=== PATIENT | male | born 1980 | race Caucasian/White ===

== ENCOUNTER 2020-08-16 22:48 | Emergency (ER) | payer OTHER ==
[2020-08-16 22:57] VITALS: BP 139/82; PULSE 85; RESP 18; TEMP 98.2
--- NOTE | 2020-08-17 00:03 | US ---
EXAMINATION TYPE: US venous doppler duplex LE LT DATE OF EXAM: 08/16/2020 11:06 PM COMPARISON: NONE CLINICAL HISTORY: redness and swelling left calf. SIDE PERFORMED: left TECHNIQUE: The lower extremity deep venous system is examined utilizing real time linear array sonog darling with graded compression, doppler sonography and color-flow sonography. VESSELS IMAGED: Common Femoral Vein Deep Femoral Vein Greater Saphenous Vein * Femoral Vein Popliteal Vein Small Saphenous Vein * Proximal Calf Veins (* superficial vessels) Left Leg: Negative for DVT Positive for SVT at the patient's area of redness, left calf. IMPRESSION: There is limited superficial vein thrombosis in the calf. No evidence of deep vein thromb osis in the left leg.
--- NOTE | 2020-08-17 00:11 | ED ---
Extremity Problem HPI - General Chief complaint: Extremity Problem,Nontraumatic Stated complaint: left lower leg extremity Time Seen by Provider: 08/16/20 22:59 Source: patient, RN notes reviewed, old records reviewed Mode of arrival: ambulatory Limitations: no limitations - History of Present Illness Initial comments: Patient is a 40-year-old male presents emergency department today with chief complaint of left leg redness pain and swelling for the past 3 days. Patient's concerned that he may have a DVT. Patient has had a history of blood clots on the right leg in the past. Patient reports that he is on current anticoagulation. He denies any chest pain or shortness of breath. - Related Data Previous Rx's Medication Instructions Recorded Ibuprofen [Motrin] 600 mg PO Q8HR PRN #20 tab 08/17/20 Allergies Allergy/AdvReac Type Severity Reaction Status Date / Time No Known Allergies Allergy Verified 08/16/20 22:57 Review of Systems ROS Statement: Those systems with pertinent positive or pertinent negative responses have been documented in the HPI. ROS Other: All systems not noted in ROS Statement are negative. Past Medical History Additional Past Medical History / Comment(s): DVT History of Any Multi-Drug Resistant Organisms: None Reported Additional Past Surgical History / Comment(s): acl reconstruction left leg. orthopedic surgery on knee. Past Psychological History: PTSD Smoking Status: Never smoker Past Alcohol Use History: Occasional Past Drug Use History: None Reported General Exam - General Exam Comments Initial Comments: Pleasant 40-year-old male. No distress. Limitations: no limitations General appearance: alert, in no apparent distress Head exam: Present: atraumatic, normocephalic, normal inspection Eye exam: Present: normal appearance, PERRL, EOMI. Absent: scleral icterus, conjunctival injection, periorbital swelling ENT exam: Present: normal exam, mucous membranes moist Neck exam: Present: normal inspection. Absent: tenderness, meningismus, lymp hadenopathy Respiratory exam: Present: normal lung sounds bilaterally. Absent: respiratory distress, wheezes, rales, rhonchi, stridor Cardiovascular Exam: Present: regular rate GI/Abdominal exam: Present: soft, normal bowel sounds. Absent: distended, tenderness, guarding, rebound, rigid Extremities exam: Present: normal inspection, full ROM, normal capillary refill, other (Patient has a redness and palpable cord over the lateral aspect of the left calf.). Absent: tenderness, pedal edema, joint swelling, calf tenderness Back exam: Present: normal inspection Neurological exam: Present: alert, oriented X3, CN II-XII intact Psychiatric exam: Present: normal affect Course Vital Signs 08/16/20 22:53 Temperature 98.2 F Pulse Rate 85 Respiratory 18 Rate Blood Pressure 139/82 O2 Sat by Pulse 96 Oximetry Medical Decision Making - Medical Decision Making 40-year-old male presents with nontraumatic left leg swelling he's had history of blood clots in the right leg in the past. Patient has evidence of superficial venous vein thrombosis on the left leg no evidence of DVT. No chest pain shortness of breath. Discussed warm compresses and Motrin Tylenol for pain. Discussed PCP follow up and to return for worsening symptoms. - Radiology Data Radiology results: report reviewed Limited superficial vein thrombosis in the calf. No evidence of DVT in the left leg. Disposition Clinical Impression: Superficial vein thrombosis Disposition: HOME SELF-CARE Condition: Good Instructions (If sedation given, give patient instructions): Superficial Thrombophlebitis (ED) Additional Instructions: Patient advised to take Motrin for pain and apply warm compresses over the area. She can follow-up with her primary care doctor or return to emergency department if any alarming signs or symptoms occur. Prescriptions: Ibuprofen [Motrin] 600 mg PO Q8HR PRN #20 tab PRN Reason: Pain Is patient prescribed a controlled substance at d/c from ED?: No Referrals: [facility],Clinic [Primary Care Provider] - 1-2 days
== END 2020-08-17 00:23 | disposition home or self-care (01) ==
LOC: EC 22:48
DX: I82.812 Embolism and thrombosis of superficial veins of left lower extremity (principal); Z86.718 Personal history of other venous thrombosis and embolism
CPT/HCPCS: 99284

== ENCOUNTER 2021-05-18 21:56 | Emergency (ER) | payer OTHER ==
[2021-05-18 22:00] VITALS: BP 127/81; PULSE 72; RESP 19; TEMP 98
--- NOTE | 2021-05-18 22:33 | US ---
EXAMINATION TYPE: US venous doppler duplex LE RT DATE OF EXAM: 05/18/2021 10:25 PM COMPARISON: Prev Left leg only CLINICAL HISTORY: pain, hx of DVT. Right calf pain, h/o SVT SIDE PERFORMED: Right TECHNIQUE: The lower extremity deep venous system is examined utilizing real time linear array sonog darling with graded compression, doppler sonography and color-flow sonography. VESSELS IMAGED: Common Femoral Vein Deep Femoral Vein Greater Saphenous Vein * Femoral Vein Popliteal Vein Small Saphenous Vein * Proximal Calf Veins (* superficial vessels) Right Leg: Negative for DVT, superficial thrombophlebitis right posterior calf in area of pt's pain IMPRESSION: No evidence of deep vein thrombosis in the right leg. There is some superficial vein thro mbosis in the calf.
--- NOTE | 2021-05-18 23:15 | ED ---
Extremity Problem HPI - General Chief complaint: Extremity Problem,Nontraumatic Stated complaint: Possible R Leg Blood Clot Time Seen by Provider: 05/18/21 22:40 Source: patient, RN notes reviewed Mode of arrival: ambulatory - History of Present Illness Initial comments: Patient is a 40-year-old male that presents to emergency department with a right calf pain. He notes he does have a history of clots. He notes that it is superficial and tender to touch. He denied any other issues or complaints at this time. He was otherwise a well-appearing 40-year-old male in apparent distress or pain. He denied any chest pain first breath headache nausea vomiting diarrhea constipation fever fatigue chills. - Related Data Previous Rx's Medication Instructions Recorded Ibuprofen [Motrin] 600 mg PO Q8HR PRN #20 tab 08/17/20 Allergies Allergy/AdvReac Type Severity Reaction Status Date / Time No Known Allergies Allergy Verified 05/18/21 22:00 Review of Systems ROS Statement: Those systems with pertinent positive or pertinent negative responses have been documented in the HPI. ROS Other: All systems not noted in ROS Statement are negative. Past Medical History Additional Past Medical History / Comment(s): DVT History of Any Multi-Drug Resistant Organisms: None Reported Additional Past Surgical History / Comment(s): acl reconstruction left leg. orthopedic surgery on knee. Past Psychological History: PTSD Smoking Status: Never smoker Past Alcohol Use History: Occasional Past Drug Use History: None Reported General Exam General appearance: alert, in no apparent distress Head exam: Present: atraumatic, normocephalic, normal inspection Eye exam: Present: normal appearance, PERRL, EOMI. Absent: scleral icterus, conjunctival injection, periorbital swelling Neck exam: Present: normal inspection Respiratory exam: Present: normal lung sounds bilaterally. Absent: respiratory distress, wheezes, rales, rhonchi, stridor Cardiovascular Exam: Present: regular rate, normal rhythm, normal heart sounds. Absent: systolic murmur, diastolic murmur, rubs, gallop, clicks GI/Abdominal exam: Present: soft, normal bowel sounds. Absent: distended, tenderness, guarding, rebound, rigid Extremities exam: Present: normal inspection, full ROM, normal capillary refill, other (Right calf tenderness, minimal discoloration. Non-hot to the touch.). Absent: tenderness, pedal edema, joint swelling, calf tenderness Neurological exam: Present: alert, oriented X3 Psychiatric exam: Present: normal affect, normal mood Skin exam: Present: warm, dry, intact, normal color. Absent: rash Course Vital Signs 05/18/21 21:57 Temperature 98 F Pulse Rate 72 Respiratory 19 Rate Blood Pressure 127/81 O2 Sat by Pulse 98 Oximetry Medical Decision Making - Medical Decision Making 89-year-old male complaining of right calf pain. Ultrasound right Ordered. Ultrasound negative for DVT but does show superficial thrombophlebitis. Patient states that he was to go home and was informed that he can do conservative management with [id number] Tylenol inflammatory such as Motrin. Case discussed with Dr. Green, patient can discharge home. - Radiology Data Radiology results: report reviewed, image reviewed Ultrasound of the right lower extremity: Negative for DVT, superficial thrombophlebitis right posterior calf an area patient's pain. Disposition Clinical Impression: Thrombophlebitis of leg, right Disposition: HOME SELF-CARE Condition: Stable Instructions (If sedation given, give patient instructions): Superficial Thrombophlebitis (ED) Additional Instructions: Please return to the Emergency Department if symptoms worsen or any other concerns. Follow-up with primary care 1-2 days. Take Motrin [id number] for the next week to help with inflammation and pain. Is patient prescribed a controlled substance at d/c from ED?: No Referrals: [facility],Clinic [Primary Care Provider] - 1-2 days Time of Disposition: 23:15
== END 2021-05-18 23:21 | disposition home or self-care (01) ==
LOC: EC 21:56
DX: I80.01 Phlebitis and thrombophlebitis of superficial vessels of right lower extremity (principal)
CPT/HCPCS: 99283

== ENCOUNTER 2021-10-05 09:08 | Emergency (ER) | payer OTHER ==
[2021-10-05 09:25] VITALS: BP 135/91; PULSE 84; RESP 18; TEMP 97.7
--- NOTE | 2021-10-05 09:47 | ED ---
General Adult HPI - General Chief complaint: Extremity Injury, Upper Stated complaint: Finger Injury Time Seen by Provider: 10/05/21 09:30 Source: patient, RN notes reviewed Mode of arrival: ambulatory Limitations: no limitations - History of Present Illness Initial comments: 41-year-old male presents to the emergency department for left that he fell down a couple stairs on the left hand and jammed his finger. Patient thinks his finger may be dislocated. States he cannot seem to get his ring off. Patient did not sustain any other injuries or hitting his head. Does not take blood thinners.Patient has no other complaints at this time including shortness of breath, chest pain, abdominal pain, nausea or vomiting, headache, or visual changes. - Related Data Previous Rx's Medication Instructions Recorded Ibuprofen [Motrin] 600 mg PO Q8HR PRN #20 tab 08/17/20 Allergies Allergy/AdvReac Type Severity Reaction Status Date / Time No Known Allergies Allergy Verified 10/05/21 09:25 Review of Systems ROS Statement: Those systems with pertinent positive or pertinent negative responses have been documented in the HPI. ROS Other: All systems not noted in ROS Statement are negative. Past Medical History Additional Past Medical History / Comment(s): DVT History of Any Multi-Drug Resistant Organisms: None Reported Past Surgical History: Orthopedic Surgery Additional Past Surgical History / Comment(s): acl reconstruction left leg. orthopedic surgery on knee. Past Psychological History: PTSD Smoking Status: Never smoker Past Alcohol Use History: Occasional Past Drug Use History: None Reported General Exam Limitations: no limitations General appearance: alert, in no apparent distress Head exam: Present: atraumatic Eye exam: Present: normal appearance, PERRL, EOMI. Absent: scleral icterus, conjunctival injection ENT exam: Present: normal exam, mucous membranes moist Neck exam: Present: normal inspection, full ROM. Absent: tenderness Respiratory exam: Present: normal lung sounds bilaterally. Absent: respiratory distress, wheezes Cardiovascular Exam: Present: regular rate, normal rhythm, normal heart sounds GI/Abdominal exam: Present: soft, normal bowel sounds. Absent: distended, tenderness Extremities exam: Present: normal capillary refill (cap refill less than 2 seconds left fourth digit.), other (Deformity noted PIP joint left fourth finger. Ring is in place.). Absent: full ROM (Unable to move left fourth digit secondary to pain.) Course Vital Signs 10/05/21 09:22 Temperature 97.7 F Pulse Rate 84 Respiratory 18 Rate Blood Pressure 135/91 O2 Sat by Pulse 97 Oximetry Procedures - Orthopedic Joint Reduction Joint #1 Side: right Joint Reduction Location: finger Analgesia: none Technique Used: traction/counter-traction Post-Reduction Neuro Exam: intact Post-Reduction Vascular Exam: intact Splint Applied: Yes Patient Tolerated Procedure: well Medical Decision Making - Medical Decision Making X-ray of the left fourth digit did show dorsal surface dislocation at the fourth PIP joint with 6 mm impaction of the middle phalanx and slight 2 mm ulnar displacement. I was able to reduce the finger and ring was removed. Patient is able to bend his finger now and has full range of motion although still slightly tender. A finger splint was placed. Patient will be referred to orthopedics. He will return here for any worsening. Disposition Clinical Impression: Finger dislocation Disposition: HOME SELF-CARE Condition: Good Instructions (If sedation given, give patient instructions): Finger Dislocation (ED) Additional Instructions: Wear splint for the next few days. Keep wearing off for the next few days. Take Motrin and Tylenol for pain and rest ice and elevate the finger. Please follow-up with your doctor or orthopedics in one to 2 days. Return to the emergency room for any worsening symptoms. Is patient prescribed a controlled substance at d/c from ED?: No Referrals: Lyubov Kumar MD [REFERRING] - 1-2 days [place] Antonio MD [STAFF PHYSICIAN] - 1-2 days Time of Disposition: 10:00
--- NOTE | 2021-10-05 09:52 | XR ---
EXAMINATION TYPE: XR finger LT DATE OF EXAM: 10/05/2021 COMPARISON: NONE HISTORY: Pain after injury, obvious deformity TECHNIQUE: 3 views left fourth finger. FINDINGS: There is dorsal surface dislocation at the fourth PIP joint with 6 mm impaction of the midd le phalanx and slight 2 mm ulnar displacement. No acute fracture. Overlying metallic length midshaft fourth proximal phalanx noted. IMPRESSION: As above.
== END 2021-10-05 10:17 | disposition home or self-care (01) ==
LOC: EC 09:08
DX: S63.259A Unspecified dislocation of unspecified finger, initial encounter (principal); W10.9XXA Fall (on) (from) unspecified stairs and steps, initial encounter
CPT/HCPCS: 26770; 99284

== ENCOUNTER 2022-06-02 20:49 | Emergency (ER) | payer OTHER ==
[2022-06-02 20:57] VITALS: PULSE 98
[2022-06-02] MEDS ORDERED: HYDROmorphone 1 MG/ML 1 ML SYRINGE IVP STA ×4 (21:02→23:35)
--- NOTE | 2022-06-02 21:14 | ED ---
General Adult HPI - General Chief complaint: Extremity Injury, Lower Stated complaint: right leg trauma Time Seen by Provider: 06/02/22 20:58 Source: patient, EMS, RN notes reviewed Mode of arrival: EMS Limitations: no limitations - History of Present Illness Initial comments: Patient is a pleasant 41-year-old male presenting to the emergency department with concern with right knee pain. Patient was skateboarding when he fell. Patient twisted his knee. No direct trauma to the knee. Patient states pain is severe at this time. Patient does have history of previous knee problems with meniscal tears and previous repairs. Patient has been told is not beneficial to have further surgery although there is still damage. No other area of injury or concern today. No head injury or loss of consciousness. No neck or back pain. - Related Data Previous Rx's Medication Instructions Recorded Ibuprofen [Motrin] 600 mg PO Q8HR PRN #20 tab 08/17/20 Allergies Allergy/AdvReac Type Severity Reaction Status Date / Time No Known Allergies Allergy Verified 06/02/22 20:57 Review of Systems ROS Statement: Those systems with pertinent positive or pertinent negative responses have been documented in the HPI. ROS Other: All systems not noted in ROS Statement are negative. Constitutional: Denies: fever Eyes: Denies: eye pain ENT: Denies: ear pain Respiratory: Denies: cough Cardiovascular: Denies: chest pain Endocrine: Denies: fatigue Gastrointestinal: Denies: abdominal pain Genitourinary: Denies: dysuria Musculoskeletal: Reports: as per HPI. Denies: back pain Skin: Denies: rash Neurological: Denies: headache Past Medical History Additional Past Medical History / Comment(s): DVT History of Any Multi-Drug Resistant Organisms: None Reported Past Surgical History: Orthopedic Surgery Additional Past Surgical History / Comment(s): acl reconstruction left leg. orthopedic surgery on knee. Past Psychological History: PTSD Smoking Status: Never smoker Past Alcohol Use History: Occasional Past Drug Use History: None Reported General Exam Limitations: no limitations General appearance: alert Head exam: Present: normocephalic Eye exam: Present: normal appearance, PERRL Neck exam: Present: normal inspection. Absent: tenderness Respiratory exam: Present: normal lung sounds bilaterally Cardiovascular Exam: Present: regular rate, normal rhythm Expanded Peripheral pulses: 2+: Posterior Tibialis (R), Dorsalis Pedis (R) GI/Abdominal exam: Present: soft. Absent: tenderness Extremities exam: Present: other (Right knee held in flexion. High riding patella. Limited evaluation secondary to patient discomfort. Distally the extremity is neurovascular intact. Pulses intact) Neurological exam: Present: alert. Absent: motor sensory deficit Psychiatric exam: Present: normal affect, normal mood Skin exam: Present: normal color Course Vital Signs 06/02/22 20:53 Temperature 98.4 F Pulse Rate 98 Respiratory 24 Rate Blood Pressure 151/89 O2 Sat by Pulse 100 Oximetry Medical Decision Making - Medical Decision Making Patient reevaluated and updated. Case discussed with practitioner jorge ferrell who does recommend knee immobilizer and follow-up with Dr. Duron - Radiology Data Interpreted by me: X-ray right knee shows superior riding patella, concerning for patellar tendon rupture. Disposition Clinical Impression: Patellar tendon rupture Disposition: HOME SELF-CARE Condition: Stable Instructions (If sedation given, give patient instructions): Tendon Rupture (ED), Patellar Tendon Repair (DC) Additional Instructions: Use knee immobilizer. Please follow-up with orthopedics in the next day or 2 for recheck. No weightbearing right knee. Ice to affected area. Return for increased pain, swelling, worsening or changing symptoms or any other concerns. Is patient prescribed a controlled substance at d/c from ED?: No Referrals: [facility],Clinic [Primary Care Provider] - 1-2 days Prosper Duron DO [Doctor of Osteopathic Medicine] - 1-2 days Time of Disposition: 22:26
[2022-06-02] MEDS ORDERED: ACET/COD 300 MG/30 MG STARTER PACK 6 TAB BTL PO STA (22:25)
--- NOTE | 2022-06-02 22:48 | XR ---
EXAM: XR Right Knee, 3 Views CLINICAL HISTORY: ITS.REASON XR Reason: trauma TECHNIQUE: Three views of the right knee. COMPARISON: No previous studies. FINDINGS: Bones/joints: Moderate osteoarthritic changes. Marked valgus angulation of the right knee joint. No significant joint effusion. No acute fracture. No dislocation. Soft tissues: Soft tissues are unremarkable. IMPRESSION: 1. Marked valgus angulation of the right knee joint. 2. Given the history, MRI imaging of the right knee joint is highly advised to follow-up for further correlation.
[2022-06-02 22:54] VITALS: BP 141/101; RESP 18; TEMP 97.8
--- NOTE | 2022-06-03 00:55 | CT ---
EXAM: CT Right Lower Extremity Without Intravenous Contrast, Knee CLINICAL HISTORY: ITS.REASON CT Reason: trauma TECHNIQUE: Axial computed tomography images of the right knee without intravenous contrast. CTDI is 16.27 mGy and DLP is 479.6 mGy-cm. This CT exam was performed using one or more of the following dose reduction techniques: automated exposure control, adjustment of the mA and/or kV according to patient size, and/or use of iterative reconstruction technique. COMPARISON: No relevant prior studies available. FINDINGS: Bones/joints: The patella is abnormally elevated 9.6 cm from the tibial tuberosity consistent with patellar tendon rupture. Mild narrowing and osteophytosis of the medial, lateral, and patellofemoral joint spaces consistent with osteoarthritis. No acute fracture is identified. The knee is held in flexion. No dislocation. Soft tissues: See above. IMPRESSION: 1. The patella is abnormally elevated 9.6 cm from the tibial tuberosity consistent with patellar tendon rupture. 2. Mild narrowing and osteophytosis of the medial, lateral, and patellofemoral joint spaces consistent with osteoarthritis. No acute fracture is identified.
== END 2022-06-03 00:50 | disposition home or self-care (01) ==
LOC: EC 20:49
DX: S76.111A Strain of right quadriceps muscle, fascia and tendon, initial encounter (principal); V00.131A Fall from skateboard, initial encounter; Y93.51 Activity, roller skating (inline) and skateboarding
CPT/HCPCS: 73564; 99284; 96374; 96376; J1170

== ENCOUNTER → 2023-07-26 | Outpatient (CLI) | payer OTHER ==
--- NOTE | 2023-07-27 05:28 | MR ---
EXAMINATION TYPE: MR knee RT wo con DATE OF EXAM: 07/26/2023 COMPARISON: Right knee x-ray and CT June 02, 2022 HISTORY: Rt knee pain, Hx of ruptured patellar tendon rt knee Sept 2021 TECHNIQUE: Multiplanar, multisequence images of the knee is performed without IV contrast. FINDINGS: MEDIAL MENISCUS: Anterior and posterior horns are intact without tear. LATERAL MENISCUS: Anterior and posterior horns are intact without tear. CRUCIATE LIGAMENTS: The anterior and posterior cruciate ligaments are intact and unremarkable. COLLATERAL LIGAMENTS: The medial collateral ligament and lateral collateral ligament complex are inta ct and unremarkable. EXTENSOR MECHANISM: Some increased signal in distal quadriceps tendon. Susceptibility artifact anteri or proximal tibia. Patellar tendon is thickened with some increased signal proximally. Surgically rep aired patellar tendon however is intact. EFFUSION: [id number] sized suprapatellar joint effusion. POPLITEAL CYST: No popliteal/cavanaugh cyst. TRICOMPARTMENT SPACES: Moderate patellofemoral compartment narrowing and spurring. Moderate medial an d lateral tibiofemoral compartment narrowing and spurring. CARTILAGE: Tricompartmental cartilaginous loss greatest medial tibiofemoral compartment. BONE MARROW SIGNAL: No focal abnormal marrow signal is appreciated. OTHER: Mild to moderate subcutaneous edema greatest medially is noted. IMPRESSION: 1. At least moderate tricompartment degenerative changes are present somewhat prominent for patient's chronologic age. 2. Some tendinosis of the distal quadriceps tendon and surgically repaired patellar tendon, no recurr ent retracted tear is seen. 3. Small to moderate-size suprapatellar joint effusion.
== END | disposition home or self-care (01) ==
LOC: RADMRIMAIN 20:15
PROVIDERS: ATTEND Orthopaedic Surgery
DX: M17.11 Unilateral primary osteoarthritis, right knee (principal); M25.461 Effusion, right knee; M67.863 Other specified disorders of tendon, right knee; Z98.890 Other specified postprocedural states

== ENCOUNTER → 2023-09-14 | Outpatient (CLI) | payer OTHER ==
--- NOTE | 2023-09-22 11:50 | MR ---
MRI right ankle HISTORY: Right fibular bone lesion. COMPARISON: None TECHNIQUE: Multiecho multiplanar images of the right ankle were obtained. FINDINGS: Within the distal third of the fibular diaphysis, there is a well-defined 10.7 x 3.7 mm lesion withi n the medullary cavity adjacent to the inner table of the cortex. It is of markedly low signal intens ity on all sequences similar to the adjacent cortical bone and is consistent with a densely sclerotic lesion.. It is has a very narrow zone of transition and the marrow fat surrounding it is normal. The re is no periosteal reaction or abnormality of the adjacent soft tissues. It has relatively benign MR I characteristics but diagnosis cannot be made on MRI imaging alone. Correlation with plain films and CT of the fibula is recommended to further characterize the lesion. There is no joint effusion. There is mild soft tissue edema in the medial and lateral soft tissues. The Achilles tendon, flexor tendons, extensor tendons and peroneal tendons are intact. There is no evidence of ligamentous injury the plantar soft tissues are normal. IMPRESSION: 10.7 x 3.7 mm lesion in the distal third of the fibular diaphysis as described above. Despite its rel atively benign MRI imaging characteristics, diagnosis cannot be made on MRI imaging alone and correla tion with plain films and CT is recommended for further characterization.
== END | disposition home or self-care (01) ==
LOC: RADMRIMAIN 14:49
PROVIDERS: ATTEND Podiatrist Foot & Ankle Surgery
DX: M89.8X7 Other specified disorders of bone, ankle and foot (principal)

== ENCOUNTER → 2023-10-20 | Outpatient (CLI) | payer OTHER ==
--- NOTE | 2023-10-20 16:50 | CT ---
EXAMINATION TYPE: CT ankle RT wo con CT DLP: 220.9 mGycm, Automated exposure control for dose reduction was used. DATE OF EXAM: 10/20/2023 4:05 PM COMPARISON: MRI ankle 09/14/2023 CLINICAL INDICATION:Male, 43 years old with history of M89.9 DISORDER OF BONE; PHH, Right ankle contu darren, states that the doctor wants to rule out a growth TECHNIQUE: Axial images were obtained of the CT ankle RT wo con, Additional coronal and sagittal refo rmatted images and soft tissue and bone window were obtained for review. 3-D reconstruction was creat ed on a separate workstation. Contrast used: mL of , (None if empty) Oral contrast used: (None if empty) FINDINGS: Diffuse edema of the lower extremity subcutaneous tissues. There is no evidence of fracture . The growth plates are ossified. Distal femur cortically-based sclerosis measuring up to 10 x 3 mm w ith nonaggressive features. There is a bone island in the cuboid bone. Mild degeneration changes of t he joints of the foot with osteophyte formation interspace narrowing. Small calcaneal plantar spurrin g is present. IMPRESSION: 1. Distal left femur cortically-based sclerosis lesion is favored represent a benign process such as an ossified nonossifying fibroma. No suspicious masses. 2. Mild edema throughout the foot.
== END | disposition home or self-care (01) ==
LOC: RADCTMAIN 15:45
PROVIDERS: ATTEND Podiatrist Foot & Ankle Surgery
DX: M89.8X7 Other specified disorders of bone, ankle and foot (principal); R60.0 Localized edema

== ENCOUNTER → 2025-02-15 | Outpatient (CLI) | payer OTHER ==
--- NOTE | 2025-02-16 08:48 | MR ---
EXAMINATION TYPE: MR knee LT wo con DATE OF EXAM: 02/15/2025 COMPARISON: NONE HISTORY: Left knee pain for 2 years due to accident playing basketball, history of surgery. Sprain of ACL. TECHNIQUE: Multiplanar, multisequence images of the knee is performed without IV contrast. FINDINGS: MEDIAL MENISCUS: Nonvisualization of significant portion of the body and posterior horn. No abnormal signal in the remnant anterior horn. LATERAL MENISCUS: Deformity or nonvisualization of significant portion of the central body and center human resources manager ior horn lateral meniscus. No abnormal signal in the remnant meniscus. CRUCIATE LIGAMENTS: The posterior cruciate ligament is intact and unremarkable. Normal anterior cruci ate ligament is not identified consistent with full-thickness tear. Susceptibility artifact from javier or surgical repair is noted. COLLATERAL LIGAMENTS: The medial collateral ligament and lateral collateral ligament complex are inta ct and unremarkable. EXTENSOR MECHANISM: Visualized quadriceps and patellar tendons are intact. EFFUSION: Large size suprapatellar joint effusion. POPLITEAL CYST: No popliteal/cavanaugh cyst. TRICOMPARTMENT SPACES: Moderate to severe tricompartment joint space loss and spurring. 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 Full-thickness loss me dial tibiofemoral and lateral tibiofemoral compartments BONE MARROW SIGNAL: Heterogeneity from prior surgical change. There is a focus of diminished T1 and i ncreased T2 signal distal lateral femoral condyle coronal image 18 and sagittal image 11. Similar are a of involvement medial aspect medial tibial plateau. OTHER: No additional significant abnormality is appreciated. IMPRESSION: 1. 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 2. Despite surgical change recurrent ACL tear is present. 3. Postsurgical change to significant portion of the medial and lateral meniscus is suspected. Correl ate clinically. No convincing evidence of new tear in the remnant menisci. 4. Large-size suprapatellar joint effusion. [facility], , 02/16/2025 8:46 AM
== END | disposition home or self-care (01) ==
LOC: RADMRIMAIN 15:52
PROVIDERS: ATTEND Orthopaedic Surgery
DX: S83.512A Sprain of anterior cruciate ligament of left knee, initial encounter (principal); M17.12 Unilateral primary osteoarthritis, left knee; Y93.67 Activity, basketball; Z98.890 Other specified postprocedural states